=== PATIENT | female | born 1995 | race Caucasian/White ===

== ENCOUNTER 2022-01-08 15:08 | Outpatient (CLI) | payer BC ==
[2022-01-08] MEDS ORDERED: ACETAMINOPHEN IV (For NPO) 1,000 MG in EMPTY BAG 1 BAG IVPB STA (15:40)
[2022-01-08] MEDS ORDERED: LACTATED RINGERS 1,000 ML IV ONE (15:45)
[2022-01-08 16:19] VITALS: BP 131/65; PULSE 136; RESP 18; TEMP 98.1
[2022-01-08 16:38] LABS: Appearance,Urine Clear (Clear); Basophils % (A) 1 %; Bilirubin,Urine Negative (Negative); Blood,Urine Negative (Negative); Color,Urine Colorless; Eosinophils % (A) 1 %; Glucose,Urine (UA) Negative (Negative); HCT 30.8 % (34.0-46.0); HGB 10.3 gm/dL (11.4-16.0); Ketones,Urine Negative (Negative); Leukocyte Esterase,Urine Negative (Negative); Lymphocytes # (A) 0.7 k/uL (1.0-4.8); Lymphocytes % (A) 18 %; MCH 29.3 pg (25.0-35.0); MCHC 33.3 g/dL (31.0-37.0); MCV 88.1 fL (80.0-100.0); Mean Platelet Volume 7.8; Monocytes # (A) 0.8 k/uL (0-1.0); Monocytes % (A) 20 %; Neutrophils # (A) 2.3 k/uL (1.3-7.7); Neutrophils % (A) 58 %; Nitrite,Urine Negative (Negative); PH, Urine 6.5 (5.0-8.0); Platelet Count 218 k/uL (150-450); Protein,Urine Negative (Negative); RDW 14.6 % (11.5-15.5); Specific Gravity,Urine 1.002 (1.001-1.035); Urobilinogen,Urine <2.0 mg/dL (<2.0); WBC 3.9 k/uL (3.8-10.6)
[2022-01-08 17:05] LABS: African American GFR (CKD) >90 (>60 ml/min/1.73 sqM); Anion Gap 7 mmol/L; Blood Urea Nitrogen 6 mg/dL (7-17); Calcium 9.2 mg/dL (8.4-10.2); Carbon Dioxide 20 mmol/L (22-30); Chloride 105 mmol/L (98-107); Glucose 70 mg/dL (74-99); Non-African American GFR(CKD) >90 (>60 ml/min/1.73 sqM); Sodium 132 mmol/L (137-145)
--- NOTE | 2022-02-22 14:54 | P.MSEPDOC ---
Presenting Problems - Arrival Data Date of Arrival on Unit: 01/08/22 Time of Arrival on Unit: 15:08 Mode of Transport: Ambulatory - Complaint OB-Reason for Admission/Chief Complaint: Pain Comment: back pain,JUAREZ, and low grade fever. Medical History - Information : 1 Para: 0 Term: 0 : 0 Abortions: Spontaneous or Elective: 0 Number of Living Children: 0 - Gestational Age Gestational Age by GUTIERREZ (wks/days): 29 Weeks and 6 Days Review of Systems - Review of Systems Constitutional: No problems Breast: No problems ENT: No problems Cardiovascular: No problems Respiratory: No problems Gastrointestinal: No problems Genitourinary: No problems Musculoskeletal: No problems Neurological: No problems Skin: No problems Vital Signs - Temperature Temperature: 98.1 F Temperature Source: Oral - Pulse Right Pulse Rate: 136 Pulse Assessment Method: Pulse Oximetry - Respirations Respiratory Rate: 18 Oxygen Delivery Method: Room Air O2 Sat by Pulse Oximetry: 99 - Blood Pressure Right Arm Blood Pressure: 131/65 Blood Pressure Mean: 87 Blood Pressure Source: Automatic Cuff Medical Screen Scoring - Assessment - Baby A Baseline FHR: 155 Heart Rate - NICHD Category: Category I (Normal) Physician Notification - Physician Notified Physician Notified Date: 01/08/22 Physician Notified Time: 15:38 Physician: Charity Ortega New Order Received: Yes (Labs,1 Liter IV fluids,FFN, Cervical exam, IV tylenol.) Maternal Triage Index - Maternal Triage Index Presenting for scheduled procedure w/no complaint: No - Stat/Priority 1 Stat Priority 1: Yes Provider Notified: Charity Ortega Provider Notified Time: 15:38 Criteria Met for Priority 1: 29 5/7 wks pt of hers reporting to triage with c/o back pain,JUAREZ,and fever. Took tylenol around 1200. HR 136 and ranging in 120s-130s, labored breathing. Disposition - Disposition OB Disposition: Triage Discharge Date: 01/08/22 Discharge Time: 17:30 I agree with the RN Medical Screening Exam: Yes Case reviewed; plan agreed upon as documented in EMR&OBIX.: Yes Diagnosis: LOW BACK PAIN, UNSPECIFIED
== END 2022-01-08 17:30 | disposition home or self-care (01) ==
LOC: FBPOP 15:08
PROVIDERS: ATTEND Obstetrics & Gynecology Obstetrics
DX: O26.893 Other specified pregnancy related conditions, third trimester (principal); M54.50 Low back pain, unspecified; Z3A.29 29 weeks gestation of pregnancy
CPT/HCPCS: 59025; 99214; 96361; 96365; 82731; 80048; 85025; 81003; J0131

== ENCOUNTER → 2022-02-14 | Outpatient (CLI) | payer BC ==
[2022-02-14 23:35] VITALS: BP 133/68; PULSE 86; RESP 16; TEMP 98.5
--- NOTE | 2022-02-15 11:01 | P.MSEPDOC ---
Presenting Problems - Arrival Data Date of Arrival on Unit: 02/14/22 Time of Arrival on Unit: 22:36 Mode of Transport: Ambulatory - Complaint OB-Reason for Admission/Chief Complaint: Decreased Movement, Headache, Elevated Blood Pressure Medical History - Information : 1 Para: 0 Term: 0 : 0 Abortions: Spontaneous or Elective: 0 Number of Living Children: 0 - Gestational Age Gestational Age by GUTIERREZ (wks/days): 35 Weeks and 0 Days - History Complications: GDM Review of Systems - Review of Systems Constitutional: No problems Breast: No problems ENT: No problems Cardiovascular: No problems Respiratory: No problems Gastrointestinal: No problems Genitourinary: No problems Musculoskeletal: No problems Neurological: No problems Skin: No problems Vital Signs - Temperature Temperature: 98.5 F Temperature Source: Temporal Artery Scan - Pulse Pulse Oximetery Pulse Rate: 86 Pulse Assessment Method: Pulse Oximetry - Respirations Respiratory Rate: 16 Oxygen Delivery Method: Room Air O2 Sat by Pulse Oximetry: 98 - Blood Pressure Right Arm Blood Pressure: 133/68 Blood Pressure Mean: 89 Blood Pressure Source: Automatic Cuff Medical Screen Scoring - Assessment - Baby A Baseline FHR: 150 Heart Rate - NICHD Category: Category I (Normal) NST: Reactive Physician Notification - Physician Notified Physician Notified Date: 02/14/22 Physician Notified Time: 23:21 Physician: Rodriguez Wood - Notification Comment Comment: Dr. Wood notified of pt's arrival to triage. Provider aware of pt's. complaints as she called the doctor line prior to arrival. RN discussed BPs WNL and CEFM. Cat 1 with a reactive NST. RN also reported on previous labwork results from 01/08/22. unremarkable. Provider okay to D/C patient home at this time. RN to discuss POC with pt. Maternal Triage Index - Maternal Triage Index Presenting for scheduled procedure w/no complaint: No - Stat/Priority 1 Stat Priority 1: No - Urgent/Priority 2 Urgent Priority 2: Yes Provider Notified: Rodriguez Wood Provider Notified Time: 23:21 Criteria Met for Priority 2: Pt is a with GUTIERREZ 03/21/22 here at 35.1 weeks of gestation with c/o high BPs. at home, headache and decreased movement. Pt reported that she has been taking her. BP at home per Dr. Ortega and stated they were elevated in the 140s tonight. Pt stated. that she gets headaches on and off, and currently has one which she rates a 4/10 for. pain but has not taken any medication for. Lastly pt reports 4 kicks/movements in the. last 2 hours. Disposition - Disposition OB Disposition: Discharge to home Discharge Date: 02/14/22 Discharge Time: 23:30 I agree with the RN Medical Screening Exam: Yes Physician's MSE Comment: I have neither seen nor examined the patient. Case reviewed; plan agreed upon as documented in EMR&OBIX.: Yes Diagnosis: RELATED CONDITIONS, UNSPECIFIED, THIRD TRIMESTER
== END | disposition home or self-care (01) ==
LOC: FBPOP 22:36
PROVIDERS: ATTEND Obstetrics & Gynecology
DX: O26.93 Pregnancy related conditions, unspecified, third trimester (principal); Z3A.35 35 weeks gestation of pregnancy
CPT/HCPCS: 59025; 99213

== ENCOUNTER 2022-03-09 16:29 | Outpatient (CLI) | payer BC, OTHER ==
[2022-03-09 17:46] LABS: Appearance,Urine Cloudy (Clear); Bacteria,Urine Rare /hpf; Bilirubin,Urine Negative (Negative); Blood,Urine Negative (Negative); Calcium Oxalate Crystals,Urine Occasional /hpf; Color,Urine Yellow; Glucose,Urine (UA) Negative (Negative); Hyaline Casts,Urine 1 /lpf (0-2); Ketones,Urine Trace (Negative); Leukocyte Esterase,Urine Negative (Negative); Mucus,Urine Occasional /hpf; Nitrite,Urine Negative (Negative); Protein,Urine Trace (Negative); RBC,Urine 5 /hpf (0-5); Specific Gravity,Urine 1.022 (1.001-1.035); Squamous Epithelial Cell,Urine <1 /hpf (0-4); Urobilinogen,Urine <2.0 mg/dL (<2.0); WBC,Urine 3 /hpf (0-5)
[2022-03-09 17:47] LABS: Basophils % (A) 0 %; Eosinophils # (A) 0.1 k/uL (0-0.7); Eosinophils % (A) 1 %; HCT 34.3 % (34.0-46.0); HGB 11.6 gm/dL (11.4-16.0); Lymphocytes % (A) 25 %; MCH 28.7 pg (25.0-35.0); MCHC 33.9 g/dL (31.0-37.0); MCV 84.7 fL (80.0-100.0); Mean Platelet Volume 7.7; Monocytes # (A) 0.4 k/uL (0-1.0); Monocytes % (A) 5 %; Neutrophils # (A) 5.4 k/uL (1.3-7.7); Neutrophils % (A) 67 %; Platelet Count 251 k/uL (150-450); RBC 4.05 m/uL (3.80-5.40); RDW 14.9 % (11.5-15.5)
[2022-03-09 17:55] LABS: Creatinine,Urine Random 113.5 mg/dL; Protein/Creatinine Ratio,Urine 0.141
[2022-03-09 18:00] LABS: ALT 11 U/L (4-34); AST 16 U/L (14-36); African American GFR (CKD) >90 (>60 ml/min/1.73 sqM); Blood Urea Nitrogen 9 mg/dL (7-17); LDH 372 U/L (313-618); Non-African American GFR(CKD) >90 (>60 ml/min/1.73 sqM); Uric Acid 4.9 mg/dL (3.7-7.4)
[2022-03-09 18:09] LABS: INR 0.9 (<1.2); Partial Thromboplastin Time 22.4 sec (22.0-30.0); Prothrombin Time 9.7 sec (9.0-12.0)
[2022-03-09 18:31] VITALS: BP 133/83; PULSE 109; RESP 18; TEMP 98
--- NOTE | 2022-03-20 09:57 | P.MSEPDOC ---
Presenting Problems - Arrival Data Date of Arrival on Unit: 03/09/22 Time of Arrival on Unit: 16:30 Mode of Transport: Ambulatory - Complaint OB-Reason for Admission/Chief Complaint: PIH Comment: pt sent from office for high blood pressures and PIH labs Medical History - Information : 1 Para: 0 Term: 0 : 0 Abortions: Spontaneous or Elective: 0 Number of Living Children: 0 - Gestational Age Gestational Age by GUTIERREZ (wks/days): 38 Weeks and 2 Days - History Complications: GDM, Other Comment: GDM and GHTN Review of Systems - Review of Systems Constitutional: No problems Breast: No problems ENT: No problems Cardiovascular: No problems Respiratory: No problems Gastrointestinal: No problems Genitourinary: No problems Musculoskeletal: No problems Neurological: No problems Skin: No problems Vital Signs - Temperature Temperature: 98.0 F Temperature Source: Oral - Pulse Pulse Oximetery Pulse Rate: 109 Pulse Assessment Method: Pulse Oximetry - Respirations Respiratory Rate: 18 Oxygen Delivery Method: Room Air O2 Sat by Pulse Oximetry: 97 - Blood Pressure Right Arm Blood Pressure: 133/83 Blood Pressure Mean: 99 Blood Pressure Source: Automatic Cuff Medical Screen Scoring - Uterine Contractions Resting: Soft to palpation - Assessment - Baby A Baseline FHR: 150 Heart Rate - NICHD Category: Category I (Normal) NST: Reactive Physician Notification - Physician Notified Physician Notified Date: 03/09/22 Physician Notified Time: 18:12 Physician: Charity Ortega New Order Received: Yes - Notification Comment Comment: d/c patient home with instructions to make appt for wednesday for NST and appt with dr. ortega Maternal Triage Index - Maternal Triage Index Presenting for scheduled procedure w/no complaint: No - Stat/Priority 1 Stat Priority 1: No - Urgent/Priority 2 Urgent Priority 2: No - Prompt/Priority 3 Prompt Priority 3: Yes Criteria Met for Priority 3: pt sent from office for high blood pressures and PIH labs, one serial BP of 144/73. Disposition - Disposition OB Disposition: Discharge to home Discharge Date: 03/09/22 Discharge Time: 18:20 I agree with the RN Medical Screening Exam: Yes Case reviewed; plan agreed upon as documented in EMR&OBIX.: Yes Diagnosis: GESTATIONAL HTN W/O SIGNIFICANT PROTEINURIA, THIRD TRIMESTER
== END 2022-03-09 18:20 | disposition home or self-care (01) ==
LOC: FBPOP 16:29
PROVIDERS: ATTEND Obstetrics & Gynecology Obstetrics
DX: O13.3 Gestational [pregnancy-induced] hypertension without significant proteinuria, third trimester (principal); O24.419 Gestational diabetes mellitus in pregnancy, unspecified control; Z3A.38 38 weeks gestation of pregnancy; Z79.84 Long term (current) use of oral hypoglycemic drugs; Z79.899 Other long term (current) drug therapy
CPT/HCPCS: 59025; 81001; 82565; 82570; 83615; 84156; 84450; 84460; 84520; 84550; 85025; 85384; 85610; 85730; 99215

== ENCOUNTER 2022-03-11 14:46 | Inpatient (IN) | payer BC, OTHER ==
[2022-03-11] MEDS: LACTATED RINGERS 1,000 ML IV SCH ×2 (15:31→17:18)
[2022-03-11 17:06] LABS: ALT 10 U/L (4-34); AST 14 U/L (14-36); African American GFR (CKD) >90 (>60 ml/min/1.73 sqM); Blood Urea Nitrogen 11 mg/dL (7-17); LDH 295 U/L (313-618); Non-African American GFR(CKD) >90 (>60 ml/min/1.73 sqM); Uric Acid 5.1 mg/dL (3.7-7.4)
[2022-03-11 17:15] LABS: Basophils % (A) 0 %; Eosinophils # (A) 0.1 k/uL (0-0.7); Eosinophils % (A) 1 %; HCT 35.3 % (34.0-46.0); Lymphocytes # (A) 2.1 k/uL (1.0-4.8); Lymphocytes % (A) 27 %; MCH 29.1 pg (25.0-35.0); MCV 85.7 fL (80.0-100.0); Mean Platelet Volume 7.6; Monocytes # (A) 0.5 k/uL (0-1.0); Monocytes % (A) 6 %; Neutrophils % (A) 64 %; Platelet Count 271 k/uL (150-450); RBC 4.12 m/uL (3.80-5.40); RDW 15.2 % (11.5-15.5); WBC 7.9 k/uL (3.8-10.6)
[2022-03-11 17:33] LABS: Creatinine,Urine Random 88.5 mg/dL
[2022-03-11 17:34] LABS: Creatinine,Urine Random 89.6 mg/dL; Protein/Creatinine Ratio,Urine 0.346
[2022-03-11 17:55] LABS: Appearance,Urine Cloudy (Clear); Bacteria,Urine Occasional /hpf; Bilirubin,Urine Negative (Negative); Blood,Urine Negative (Negative); Color,Urine Yellow; Glucose,Urine (UA) Negative (Negative); Ketones,Urine Negative (Negative); Leukocyte Esterase,Urine Negative (Negative); Mucus,Urine Few /hpf; Nitrite,Urine Negative (Negative); Protein,Urine Trace (Negative); RBC,Urine <1 /hpf (0-5); Specific Gravity,Urine 1.021 (1.001-1.035); Uric Acid Crystals,Urine Rare /hpf; Urobilinogen,Urine <2.0 mg/dL (<2.0); WBC,Urine 1 /hpf (0-5)
[2022-03-11] MEDS: LABETALOL 100 MG TAB PO SCH (21:00)
[2022-03-12] MEDS: LACTATED RINGERS 1,000 ML IV SCH ×2 (01:56→18:50)
[2022-03-12] MEDS: ACETAMINOPHEN TAB 325 MG TAB PO PRN (03:21)
[2022-03-12] MEDS ORDERED: OXYTOCIN 10 UNIT/ML 1 ML VIAL IM PRN (07:07)
[2022-03-12] MEDS ORDERED: CARBOPROST TROMETHAMINE 250 MCG/ML 1 ML AMP IM PRN (07:07)
[2022-03-12] MEDS ORDERED: TERBUTALINE 1 MG/ML VIAL SQ PRN (07:07)
[2022-03-12] MEDS ORDERED: METHYLERGONOVINE 0.2 MG/ML 1 ML AMP IM PRN (07:07)
[2022-03-12] MEDS ORDERED: LIDOCAINE 0.5% (PF) 5 MG/ML (50 ML SDV) SQ PRN (07:07)
[2022-03-12] MEDS ORDERED: OXYTOCIN 30 UNITS/500 ML NS 30 UNIT in SALINE 1 500ML.BAG IV SCH (07:15)
[2022-03-12] MEDS: LABETALOL 100 MG TAB PO SCH (09:03)
[2022-03-12] MEDS: BUTORPHANOL 1 MG/ML 1 ML VIAL IV PRN ×2 (15:27→18:47)
[2022-03-12] MEDS ORDERED: CITRIC ACID-SODIUM CITRATE 15 ML CUP PO ONE (20:10)
[2022-03-12] MEDS ORDERED: ceFAZolin 3 GM in SODIUM CHLORIDE 0.9% 100 ML IVPB ONE (20:10)
--- NOTE | 2022-03-12 20:22 | P.HPOB ---
History of Present Illness H&P Date: 03/12/22 Chief Complaint: IUP at 38 and 5, gestational hypertension This is a 27-year-old 1 para 0 at 38-5/7 weeks that was seen in the office yesterday for visit. Patient underwent NST which was reactive, category 1. Patient was noted to be visibly uncomfortable. Patient states she started having low back pain earlier that evening and continued through the morn ing. Patient's blood pressures were elevated through the night she has been checking them at home. Patient currently takes labetalol 100 mg twice daily for diagnosis of gestational hypertension. Patient was sent to labor and delivery for monitoring. Patient was noted to be isabelle every 2-3 minutes. Patient made minimal change during her triage visit. I did admit patient overnight for observation given elevated blood pressures, her protein creatinine ratio did come back elevated at 0.3 which is a significant elevation from prior labs. Preeclampsia labs were noted to be negative. Patient denies signs or symptoms of preeclampsia. Decision was made for induction of labor secondary to gestational hypertension. Review of Systems Constitutional: Denies chills, Denies fatigue, Denies fever Ears, nose, mouth and throat: Denies headache Cardiovascular: Reports leg edema Respiratory: Denies dyspnea Gastrointestinal: Denies constipation, Denies diarrhea, Denies nausea, Denies vomiting Genitourinary: Reports Past Medical History Additional Past Medical History / Comment(s): PCOS, Gestational hypertension, Gestational diabetes, seasonal allergies History of Any Multi-Drug Resistant Organisms: None Reported Past Surgical History: Appendectomy Past Anesthesia/Blood Transfusion Reactions: No Reported Reaction Smoking Status: Never smoker Past Drug Use History: None Reported - Past Family History Father Family Medical History: Diabetes Mellitus, Hypertension, Thyroid Disorder Medications and Allergies Home Medications Medication Instructions Recorded Confirmed Type Cetirizine HCl [Zyrtec] 10 mg PO DAILY 01/08/22 03/11/22 History Fluticasone Propionate [Flonase 1 spray EA NOSTRIL HS 01/08/22 03/11/22 History Allergy Relief] Montelukast [Singulair] 10 mg PO DAILY 01/08/22 03/11/22 History Pnv No.95/Ferrous Fum/Folic AC 1 each PO HS 01/08/22 03/11/22 History [ Multivitamin Tablet] Labetalol [Trandate] 1 tab PO BID 03/09/22 03/11/22 History metFORMIN HCL 1.5 tab PO DAILY 03/09/22 03/11/22 History Allergies Allergy/AdvReac Type Severity Reaction Status Date / Time No Known Allergies Allergy Verified 03/11/22 15:12 Exam Osteopathic Statement: *. No significant issues noted on an osteopathic structural exam other than those noted in the History and Physical/Consult. Vital Signs Temp Pulse Resp BP Pulse Ox 03/11/22 17:09 96.8 F L 100 16 143/79 98 03/11/22 16:39 96.8 F L 100 18 143/79 98 Intake and Output 03/11/22 03/12/22 03/12/22 22:59 06:59 14:59 Other: # Voids 2 1 Weight 150.139 kg Targeted physical exam is performed in this date in general this is a well- nourished well-developed obese female in no acute distress, breathing is noted to be nonlabored, heart has a regular rhythm, abdomen is obese and gravid, on cervical exam she is noted to be 1-2 cm 50% effaced at -3 station amniotomy is performed with some difficulty but clear fluid is obtained. heart tones are noted to be category 1 and she is isabelle irregularly at this time, monitor is difficult to stay on secondary to patient size. Results Result Diagrams: 03/11/22 15:30 03/11/22 16:46 Abnormal Lab Results - Last 24 Hours (Table) 03/11/22 03/11/22 03/11/22 Range/Units 16:30 16:30 16:46 Creatinine 0.42 L (0.52-1.04) mg/dL Lactate Dehydrogenase 295 L (313-618) U/L Urine Appearance Cloudy H (Clear) Urine Protein Trace H (Negative) Uric Acid Crystals Rare H (None) /hpf Urine Bacteria Occasional H (None) /hpf Urine Mucus Few H (None) /hpf U Random Total Protein 32 H (<12) mg/dL Assessment and Plan (1) 38 weeks gestation of Current Visit: Yes Status: Acute Code(s): Z3A.38 - 38 WEEKS GESTATION OF SNOMED Code(s): 41399963 (2) Gestational HTN Current Visit: Yes Status: Acute Code(s): O13.9 - GESTATIONAL HTN W/O SIGNIFICANT PROTEINURIA, UNSP TRIMESTER SNOMED Code(s): 23756429 (3) GDM (gestational diabetes mellitus) Current Visit: Yes Status: Acute Code(s): O24.419 - GESTATIONAL DIABETES MELLITUS IN , UNSP CONTROL SNOMED Code(s): 20989761 Plan: 27-year-old 1 para 0 at 38-5/7 weeks admitted for induction of labor secondary to gestational hypertension. Pitocin induction of labor was begun this morning, amniotomy performed and clear fluid was obtained. Options for analgesia are discussed, Stadol and epidural specifically. Patient will consider. Continue by mouth labetalol during labor course. We will monitor blood pressures and alter if needed.
[2022-03-12] MEDS ORDERED: fentaNYL (PF) 50 MCG/ML 2 ML AMP ONE (21:46)
[2022-03-12] MEDS ORDERED: DEXAMETHASONE SOD PHOSPHATE 4 MG/ML 1 ML VIAL ONE (21:46)
[2022-03-12] MEDS ORDERED: OXYTOCIN 30 UNITS/500 ML NS BAG IV ONE (21:46)
[2022-03-12] MEDS ORDERED: ONDANSETRON 4 MG/2 ML VIAL ONE (21:46)
[2022-03-12] MEDS ORDERED: MORPHINE SULFATE (PF) 0.3 MG/0.3 ML SYR ONE (21:46)
--- NOTE | 2022-03-12 22:41 | P.OP ---
Date of Procedure: 03/12/22 Preoperative Diagnosis: IUP @ 38 5/7 weeks, gestational htn, failed induction. Postoperative Diagnosis: same Procedure(s) Performed: Primary section Anesthesia: spinal Surgeon: Charity Ortega Gang Boss #1: Aashish Harris Pathology: other (placenta) Condition: stable Disposition: observation Indications for Procedure: 27yo at 38 5/7 weeks that presented yesterday for elevated BP despite treatment with labetalol po. she was noting contractions q 2-3 minutes while at her OB visit. she was observed overnight with no cervical change noted. BP remain 140-150/90-100's she now states she has a JUAREZ. She had pitocin started for induction of labor this am around 7 am, amniotomy was preformed and clear fluid was obtained. she has made minimal change 1-2 cm all day and has now been ruptured for 12 + hours. she is counseled on c section for arrest of dilation/failed induction/gestational HTN. she states she would like to proceed with c section, she feels like "something is wrong" BPs remain elevated and with new onset of JUAREZ will proceed with delivery. I will watch BP closely and assess for need for magnesium treatment based on BP. Her pre eclampsia labs were negative with exception of an elevated PC ratio, increase from Wednesday. questions answered and patient/family is ok with proceeding with section. Operative Findings: Normal uterus tubes and ovaries are appreciated, viable female infant delivered at 2206, weight of 8 lbs. 6 oz., Apgars of 8 and 9 at one and 5 minutes respectively. Description of Procedure: Patient was taken back to the operating suite where spinal anesthesia was found be adequate. She was then prepped and draped in normal sterile fashion in the dorsal supine position. A Pfannenstiel skin incision was made with the scalpel and carried through the underlying layer of fascia. The fascia was then incised in the midline and extended laterally. The superior aspect of the fascial incision was then grasped jen clamps, elevated and underlying rectus muscles dissected off sharply. The inferior aspect of the fascial incision was then grasped jen clamps, elevated and underlying rectus muscles dissected off sharply once again. The rectus muscles were in the midline the peritoneum was identified and entered. The bladder blade was then inserted into the pelvis. The vesicouterine peritoneum was identified and the bladder flap was created using sharp and blunt dissection. The hysterotomy incision was made with the scalpel clear fluid was noted infant was encountered in a vertex presentation, asynclitic in nature. Infant was delivered in the usual fashion spontaneous was cry was noted at . The umbilical cords doubly clamped and cut. The was handed off to awaiting RN. The placenta was delivered manually and the uterus was delivered from the abdomen. The uterus was cleared of all clots and debris. The uterine incision was closed 0 Vicryl in a running locked fashion. A second inverting suture was performed. Bleeding was noted on the right-hand side of the uterine incision therefore 2 [id number] sutures were used to obtain hemostasis. The uterus was then returned to the abdomen , the hysterotomy incision was inspected and found to be hemostatic. The gutters were cleared of all clots and debris. The peritoneum was then loosely reapproximated. The rectus muscles were inspected and any points of bleeding were made hemostatic with the Bovie. The fascia was then closed with 0 Vicryl in a running fashion from one lateral edge the midline and the other lateral edge the midline. The subcutaneous tissue was irrigated and any points of bleeding were made hemostatic with the Bovie. The subcu tissues closed with 3-0 Vicryl in a running fashion. The skin was then closed with 4-0 Vicryl in a subcuticular fashion. Steri-Strips and sterile dressings were applied. All counts were correct 2. Patient and tolerated delivery well and are resting comfortable he.
[2022-03-12] MEDS ORDERED: ONDANSETRON 4 MG/2 ML VIAL IVP PRN (22:45)
[2022-03-12] MEDS ORDERED: METOCLOPRAMIDE 5 MG/ML 2 ML VIAL IVP PRN (22:45)
[2022-03-12] MEDS ORDERED: ZOLPIDEM 5 MG TAB PO PRN (22:45)
[2022-03-12] MEDS ORDERED: diphenhydrAMINE 25 MG CAP PO PRN (22:45)
[2022-03-12] MEDS ORDERED: SIMETHICONE 80 MG CHEWABLE PO PRN (22:45)
[2022-03-12] MEDS ORDERED: NALOXONE 0.4 MG/ML 1 ML VIAL IV PRN (22:45)
[2022-03-12] MEDS ORDERED: diphenhydrAMINE 50 MG CAP PO PRN (22:45)
[2022-03-12] MEDS ORDERED: diphenhydrAMINE 50 MG/ML 1 ML VIAL IVP PRN ×2 (22:45)
[2022-03-13] MEDS: LABETALOL 100 MG TAB PO SCH ×4 (00:38→20:19)
[2022-03-13] MEDS: LACTATED RINGERS 1,000 ML IV SCH ×4 (00:40→07:17)
[2022-03-13] MEDS: IBUPROFEN IV 800 MG in SODIUM CHLORIDE 0.9% 250 ML IV SCH ×5 (02:13→18:11)
[2022-03-13] MEDS: IBUPROFEN 600 MG TAB PO SCH ×4 (03:47→19:32)
[2022-03-13] MEDS: ACETAMINOPHEN TAB 325 MG TAB PO PRN ×3 (05:13→23:23)
--- NOTE | 2022-03-13 07:40 | P.PN ---
Progress Note - Text 03/13/22 651am 47-year-old female status post with spinal Duramorph. Patient seen and evaluated for postop pain control, patient has a VAS of 0 with no complaints of nausea vomiting. Patient does have mild pruritus which should subside by the end of the day.
[2022-03-13] MEDS: SENNOSIDES-DOCUSATE SODIUM 1 EACH TAB PO SCH ×2 (08:29→19:32)
[2022-03-13 09:05] LABS: Basophils % (A) 0 %; Eosinophils % (A) 0 %; HCT 32.9 % (34.0-46.0); HGB 10.6 gm/dL (11.4-16.0); Lymphocytes # (A) 1.4 k/uL (1.0-4.8); Lymphocytes % (A) 11 %; MCH 27.4 pg (25.0-35.0); MCHC 32.2 g/dL (31.0-37.0); MCV 85.1 fL (80.0-100.0); Mean Platelet Volume 7.7; Monocytes # (A) 0.5 k/uL (0-1.0); Monocytes % (A) 4 %; Neutrophils # (A) 10.8 k/uL (1.3-7.7); Neutrophils % (A) 85 %; Platelet Count 253 k/uL (150-450); RBC 3.87 m/uL (3.80-5.40); RDW 14.8 % (11.5-15.5); WBC 12.8 k/uL (3.8-10.6)
[2022-03-13] MEDS: LABETALOL 200 MG TAB PO SCH (09:29)
--- NOTE | 2022-03-13 11:23 | P.PNOBGPC ---
Subjective - Subjective Principal diagnosis: Postop day 1, primary Interval history: Patient is doing well postoperatively. She is ambulating and voiding without difficulty. She states she is breast-feeding without difficulty. States her lochia is minimal. She states her pain is well-controlled with oral ibuprofen and Tylenol. She denies nausea or vomiting and is tolerating regular diet. Patient reports: Reports appetite normal, Reports voiding normally, Reports pain well controlled, Reports ambulating normally : doing well, nursing well Objective - Vital Signs Latest vital signs: Vital Signs Temp Pulse Pulse Resp BP Pulse Ox 03/13/22 08:00 98.2 F 98 18 143/79 98 03/13/22 03:34 97.7 F 85 16 136/70 95 03/13/22 00:40 98.4 F 80 16 100 03/13/22 00:10 93 16 143/85 100 03/13/22 00:00 16 03/12/22 23:40 98.7 F 86 16 141/72 98 03/12/22 23:25 98.7 F 72 15 149/68 97 03/12/22 23:10 98.7 F 77 16 149/68 94 L 03/12/22 22:55 73 16 137/74 97 03/12/22 22:40 96.7 F L 78 16 138/69 95 Intake and Output 03/12/22 03/13/22 03/13/22 22:59 06:59 14:59 Intake Total 240 Output Total 695 1925 100 Balance -695 -1685 -100 Intake: Oral 240 Output: Urine 300 1100 100 Uretheral (Grossman) 300 500 Estimated Blood Loss 395 395 Output, Quantitative 430 Blood Loss Other: Voiding Method Indwelling Catheter Indwelling Catheter # Voids 1 - Exam Extremities: Present: normal, edema Abdomen: Present: normal appearance Incision: Present: normal, dry, intact Uterus: Present: normal, firm - Labs Labs: Abnormal Lab Results - Last 24 Hours (Table) 03/13/22 Range/Units 08:18 WBC 12.8 H (3.8-10.6) k/uL Hgb 10.6 L (11.4-16.0) gm/dL Hct 32.9 L (34.0-46.0) % Neutrophils # 10.8 H (1.3-7.7) k/uL Assessment and Plan (1) 38 weeks gestation of Current Visit: Yes Status: Acute Code(s): Z3A.38 - 38 WEEKS GESTATION OF SNOMED Code(s): 48659371 (2) Gestational HTN Current Visit: Yes Status: Acute Code(s): O13.9 - GESTATIONAL HTN W/O SIGNIFICANT PROTEINURIA, UNSP TRIMESTER SNOMED Code(s): 21661854 (3) GDM (gestational diabetes mellitus) Current Visit: Yes Status: Acute Code(s): O24.419 - GESTATIONAL DIABETES MELLITUS IN , UNSP CONTROL SNOMED Code(s): 58307680 (4) Failed induction Current Visit: Yes Status: Acute Code(s): O61.9 - FAILED INDUCTION OF LABOR, UNSPECIFIED SNOMED Code(s): 05301989 (5) Asynclitism Current Visit: Yes Status: Acute Code(s): O32.8XX0 - MATERNAL CARE FOR OTH MALPRESENTATION OF FETUS, UNSP SNOMED Code(s): 94530305 Plan: 27-year-old G1 now P1 status post primary for failed induction or gestational hypertension. Patient is doing well postoperatively. We'll plan to continue routine postoperative care. Continue labetalol 100 mg twice daily for blood pressure control. We will monitor closely and if stable we'll plan to discharge home tomorrow. Patient is counseled on need for close follow-up next week for blood pressure check.
[2022-03-14] MEDS: LABETALOL 200 MG TAB PO SCH ×3 (00:27→21:28)
[2022-03-14] MEDS: PRENATAL VIT-IRON-FOLIC ACID 1 EACH TABLET PO SCH ×2 (00:39→21:25)
[2022-03-14] MEDS: IBUPROFEN 600 MG TAB PO SCH ×5 (03:57→23:25)
--- NOTE | 2022-03-14 08:27 | P.DS ---
Providers Date of admission: 03/12/22 07:07 Expected date of discharge: 03/14/22 Attending physician: Charity Ortega Primary care physician: Stated None - Discharge Diagnosis(es) (1) Status post section Current Visit: Yes Status: Acute Hospital Course: The patient is a 27-year-old 1 para 0 admitted at 38-5/7 weeks by good dating parameters. She is admitted for blood pressure monitoring and rule out labor, initially with 23 hour observation, after which time she was admitted secondary to continued elevated blood pressures. Laboratory workup for preeclampsia was negative. Given her elevated blood pressures and gestational age, the decision was made to proceed with induction. She had Pitocin augmentation started and underwent artificial rupture of membranes for clear fluid. She then labored throughout the entire day never changing her cervix beyond 1-2 cm of dilation. She was then ultimately counseled and agreed to undergo primary low-transverse section for failed induction/arrest of dilation and descent. She was taken the operating room where she was delivered of a viable 8 lbs. 6 oz. baby girl with Apgars of 8 at 1 minute and 9 at 5 minutes. Her postoperative course was unremarkable with her blood pressure stable on labetalol 100 mg twice daily. Remainder of vital signs were entirely within normal limits. She was deemed stable for discharge on postoperative day #2 was discharged home to follow-up in the office in 2 weeks for an incision check and 6 weeks routinely. Discharge instructions included calling for any significantly increased bleeding or foul-smelling lochia, significantly increased fever or abdominal pain, perineal complaints, breast complaints, incisional complaints, or anything else that concerned her. She was additionally instructed to have nothing in the vagina for at least 6 weeks time to include intercourse. She was also instructed to do no heavy lifting over the same period of time. She was last instructed to do no driving until off of all pain medications or 2 weeks' time, whichever came first. She understood her instructions and agrees to follow up as noted above. Discharge medications included continued vitamins as she has opted to breast-feed. She otherwise was provided a prescription for Tylenol 3, 1-2 by mouth every 6 hours when necessary pain, she is to continue with her labetalol 100 mg twice daily. Maternal blood type is A+ and rubella status is immune. Procedures: #1. Pitocin induction #2. Artificial rupture of membranes #3. Primary low- transverse section Patient Condition at Discharge: Stable Plan - Discharge Summary New Discharge Prescriptions: No Action Cetirizine HCl [Zyrtec] 10 mg PO DAILY Pnv No.95/Ferrous Fum/Folic AC [ Multivitamin Tablet] 1 each PO HS metFORMIN HCL 1.5 tab PO DAILY Montelukast [Singulair] 10 mg PO DAILY Fluticasone Propionate [Flonase Allergy Relief] 1 spray EA NOSTRIL HS Labetalol [Trandate] 1 tab PO BID Discharge Medication List Cetirizine HCl [Zyrtec] 10 mg PO DAILY 01/08/22 [History] Fluticasone Propionate [Flonase Allergy Relief] 1 spray EA NOSTRIL HS 01/08/22 [History] Montelukast [Singulair] 10 mg PO DAILY 01/08/22 [History] Pnv No.95/Ferrous Fum/Folic AC [ Multivitamin Tablet] 1 each PO HS 01/08/22 [History] Labetalol [Trandate] 1 tab PO BID 03/09/22 [History] metFORMIN HCL 1.5 tab PO DAILY 03/09/22 [History] Follow up Appointment(s)/Referral(s): Charity Ortega DO [Doctor of Osteopathic Medicine] - 2 Weeks Discharge Disposition: HOME SELF-CARE
[2022-03-14] MEDS: LABETALOL 100 MG TAB PO SCH ×2 (08:55→20:55)
[2022-03-14] MEDS: SENNOSIDES-DOCUSATE SODIUM 1 EACH TAB PO SCH ×2 (08:55→20:55)
[2022-03-14] MEDS: ACETAMINOPHEN TAB 325 MG TAB PO PRN ×3 (08:55→20:55)
[2022-03-15] MEDS: ACETAMINOPHEN TAB 325 MG TAB PO PRN ×3 (02:37→14:45)
[2022-03-15] MEDS: IBUPROFEN 600 MG TAB PO SCH ×2 (05:26→11:22)
[2022-03-15] MEDS: SENNOSIDES-DOCUSATE SODIUM 1 EACH TAB PO SCH (07:34)
[2022-03-15] MEDS: LABETALOL 100 MG TAB PO SCH (07:35)
[2022-03-15 07:43] VITALS: BP 145/84; PULSE 92; RESP 18; TEMP 97.6
[2022-03-15] MEDS: LABETALOL 200 MG TAB PO SCH (10:21)
== END 2022-03-15 15:00 | disposition home or self-care (01) | DRG 788 ==
LOC: FBPOP 14:46 → 4FBP 16:23 → OBSVTOIN 03-12 07:07
PROVIDERS: ADMIT Obstetrics & Gynecology Obstetrics; ATTEND Obstetrics & Gynecology Obstetrics
PROC: 10907ZC Drainage of Amniotic Fluid, Therapeutic from Products of Conception, Via Natural or Artificial Opening (ICD-10-PCS; 2022-03-12)
PROC: 3E033VJ Introduction of Other Hormone into Peripheral Vein, Percutaneous Approach (ICD-10-PCS; 2022-03-12)
PROC: 10D00Z1 Extraction of Products of Conception, Low, Open Approach (ICD-10-PCS; principal; 2022-03-12 20:20)
DX: O13.4 Gestational [pregnancy-induced] hypertension without significant proteinuria, complicating childbirth (principal); Z28.310 Unvaccinated for COVID-19; O24.425 Gestational diabetes mellitus in childbirth, controlled by oral hypoglycemic drugs; O61.9 Failed induction of labor, unspecified; O62.1 Secondary uterine inertia; O32.8XX0 Maternal care for other malpresentation of fetus, not applicable or unspecified; Z37.0 Single live birth; Z3A.38 38 weeks gestation of pregnancy; O99.73 Diseases of the skin and subcutaneous tissue complicating the puerperium; L29.9 Pruritus, unspecified; E28.2 Polycystic ovarian syndrome; J30.2 Other seasonal allergic rhinitis; Z79.84 Long term (current) use of oral hypoglycemic drugs; Z79.899 Other long term (current) drug therapy; Z83.3 Family history of diabetes mellitus; Z82.49 Family history of ischemic heart disease and other diseases of the circulatory system; Z83.49 Family history of other endocrine, nutritional and metabolic diseases
CPT/HCPCS: 36415; 59025; 81001; 82565; 82570; 83615; 84156; 84450; 84460; 84520; 84550; 85025; 86850; 86900; 86901; 96360